=== PATIENT | female | born 1985 | race Caucasian/White ===

== ENCOUNTER 2019-03-05 11:33 | Emergency (ER) | payer OTHER ==
[2019-03-05] MEDS ORDERED: NORMAL SALINE 1000 ML 1,000 ML IV ONE (11:58)
[2019-03-05] MEDS ORDERED: METOCLOPRAMIDE HCL INJ/PF 10 MG/2 ML SDV IV ONE (11:58)
[2019-03-05 12:59] LABS: ABSOLUTE EOSINOPHILS # (AUTO) 0.1 10^3/uL (0.0-0.6); ABSOLUTE LYMPHOCYTES (AUTO) 1.5 10^3/uL (0.5-4.7); ABSOLUTE MONOCYTES (AUTO) 0.5 10^3/uL (0.1-1.4); ABSOLUTE NEUT (AUTO) 6.8 10^3/uL (1.7-8.2); BASOPHILS % (AUTO) 0.3 % (0-2); EOSINOPHILS % (AUTO) 1.1 % (0-6); HEMATOCRIT 40.3 % (36.0-47.0); HEMOGLOBIN 13.7 g/dL (12.0-15.5); LYMPHOCYTES % (AUTO) 17.2 % (13-45); MEAN CORPUSCULAR HEMOGLOBIN 30.1 pg (27.0-33.4); MEAN CORPUSCULAR HGB CONC 34.1 g/dL (32.0-36.0); MEAN CORPUSCULAR VOLUME 89 fl (80-97); MONOCYTES % (AUTO) 5.4 % (3-13); PLATELET COUNT 205 10^3/uL (150-450); RED BLOOD COUNT 4.55 10^6/uL (3.72-5.28); RED CELL DISTRIBUTION WIDTH 12.5 % (11.5-14.0); TOTAL CELLS COUNTED % (AUTO) 100 %; WHITE BLOOD COUNT 8.9 10^3/uL (4.0-10.5)
[2019-03-05 13:09] LABS: APPEARANCE,URINE SLIGHTLY-CLOUDY; BILIRUBIN,URINE NEGATIVE (NEGATIVE); GLUCOSE, URINE NEGATIVE (NEGATIVE); KETONES,URINE NEGATIVE (NEGATIVE); LEUKOCYTE ESTERASE,URINE MODERATE (NEGATIVE); NITRITE,URINE NEGATIVE (NEGATIVE); PROTEIN,URINE NEGATIVE (NEGATIVE); URINE SPECIFIC GRAVITY 1.025; UROBILINOGEN,URINE NEGATIVE mg/dL (<2.0)
[2019-03-05 13:12] LABS: COLOR,URINE YELLOW
[2019-03-05 15:03] LABS: ALBUMIN 4.4 g/dL (3.5-5.0); ALKALINE PHOSPHATASE 51 U/L (38-126); ANION GAP 10 (5-19); ASPARTATE AMINO TRANSFERASE 20 U/L (14-36); BILIRUBIN,DIRECT 0.3 mg/dL (0.0-0.4); BILIRUBIN,TOTAL 0.5 mg/dL (0.2-1.3); BLOOD UREA NITROGEN 8 mg/dL (7-20); CALCIUM 9.5 mg/dL (8.4-10.2); CARBON DIOXIDE 23 mmol/L (22-30); CHLORIDE 103 mmol/L (98-107); GLUCOSE 83 mg/dL (75-110); TOTAL PROTEIN 7.2 g/dL (6.3-8.2)
[2019-03-05] MEDS ORDERED: CALCIUM GLUCONATE 1000 MG/10 ML INJ IV ONE (15:52)
[2019-03-05] MEDS ORDERED: CEPHALEXIN 500 MG CAPSULE PO ONE (16:09)
[2019-03-05] MEDS ORDERED: ONDANSETRON ODT 4 MG TAB (6 TAB/ER DISP) PO PRN (16:09)
--- NOTE | 2019-03-05 16:12 | ER Document Report ---
ED General - General Chief Complaint: Nausea/Vomiting/Diarrhea Stated Complaint: NAUSEA Time Seen by Provider: 03/05/19 11:55 Primary Care Provider: JEREMY SOLOMON MD [Primary Care Provider] - Follow up as needed Notes: 33-year-old G7, P2 5-week female presents to the emergency department for intractable nausea and intermittent vomiting x1 week. She said it got acutely worse overnight and she sought treatment in the emergency department. She received Zofran in triage and states she is feeling better upon meeting her. She has not had intractable vomiting or any diarrhea. She denies any rapid heart rate or any recent illness. She denies fevers or chills, denies abdominal pain, denies abnormal vaginal discharge, did complain of some mild spotting on Friday but states that she is on progesterone and this is an expected side effect. She is being followed by [facility]. No other complaints TRAVEL OUTSIDE OF THE [place] IN LAST 30 DAYS: No - Related Data Allergies/Adverse Reactions: No Known Allergies Allergy (Verified 03/05/19 11:46) Past Medical History - Social History Smoking Status: Never Smoker Family History: None Patient has suicidal ideation: No Patient has homicidal ideation: No Past Surgical History: Reports: Hx Orthopedic Surgery - back, foot, hand Review of Systems - Review of Systems Constitutional: See HPI EENT: No symptoms reported Cardiovascular: See HPI Respiratory: See HPI Gastrointestinal: See HPI Genitourinary: See HPI Female Genitourinary: See HPI Musculoskeletal: No symptoms reported Skin: No symptoms reported Hematologic/Lymphatic: No symptoms reported Neurological/Psychological: No symptoms reported Physical Exam - Vital signs Vitals: Temp Pulse Resp BP Pulse Ox 98.1 F 70 18 124/78 99 03/05/19 11:48 03/05/19 11:48 03/05/19 11:48 03/05/19 11:48 03/05/19 11:48 - Notes Notes: PHYSICAL EXAMINATION: Reviewed vital signs and charting by RN GENERAL: Alert, interacts well. No acute distress. HEAD: Normocephalic, atraumatic. EYES: Pupils equal and round. Extraocular movements intact. ENT: Oral mucosa moist, tongue midline. NECK: Full range of motion. Trachea midline. LUNGS: Clear to auscultation bilaterally, no wheezes, rales, or rhonchi. No re spiratory distress. HEART: Regular rate and rhythm. No murmur ABDOMEN: soft, non-tender. No distention. Bowel sounds present EXTREMITIES: Moves all 4 extremities spontaneously. No edema, No cyanosis. PSYCH: Normal affect, normal mood. SKIN: Warm, dry, normal turgor. No rashes or lesions noted. Course - Re-evaluation Re-evalutation: 03/05/19 16:12 Overall well-appearing. Patient with history of nausea and vomiting in pregnanc y. He is a high risk patient is she is a G7, P2. She does have symptoms of urinary tract infection so I am treating her and will send the urine for culture. She will receive Keflex 500 mg p.o. here and I will give her a Zofran dispense pack. I have advised her on the Unisom/vitamin B6 combination as well. Patient's lab work all within normal limits and there is no evidence of dehydration in urine or in lab work, no electrolyte derangements. At this time patient understands plan, has been given strict return precautions, and is stable for discharge. - Vital Signs Vital signs: Temp Pulse Resp BP Pulse Ox 98.1 F 70 18 124/78 99 03/05/19 11:48 03/05/19 11:48 03/05/19 11:48 03/05/19 11:48 03/05/19 11:48 - Laboratory Result Diagrams: 03/05/19 12:29 03/05/19 13:11 Laboratory results interpreted by me: 03/05/19 03/05/19 12:29 13:11 Sodium 136.3 L Creatinine 0.45 L Beta HCG, Quant 71390.00 H Ur Leukocyte Esterase MODERATE H Urine Ascorbic Acid 40 H Discharge - Discharge Clinical Impression: Nausea and vomiting during prior to 22 weeks gestation Condition: Good Disposition: HOME, SELF-CARE Additional Instructions: You have been seen for nausea vomiting during . You should continue to drink plenty of water and consider taking a solution such as Pedialyte if your having difficulty eating food. Please return if you become unable to drink any fluids for more than 12 hours, urinate less than twice a day, pass out, or have any other symptoms that are concerning to you. For nausea and vomiting during I recommend: Start with 10-12.5 mg of pyridoxine (vitamin B6) three times a day for 2 days. If not fully effective, Increase to 12.5 mg of pyridoxine four times a day for 2 days. If not fully effective, Increase to 25 mg of pyridoxine three times a day for 2 days. If not fully effective, Continue 25 mg pyridoxine 3 times a day, and add 12.5 mg of doxylamine before bedtime each day for 2 days. If not fully effective, Continue 25 mg pyridoxine 3 times a day, and take 12.5 mg of doxylamine twice a day. If not fully effective, Continue 25 mg pyridoxine 3 times a day, and take 12.5 mg of doxylamine three times a day. If not fully effective, Continue 25 mg pyridoxine 3 times a day, and 12.5 mg of doxylamine 3 times a day, while adding Emetrol, one to two tablespoons (15-30 cc) taken once or twice a day as needed. (Emetrol is an ayhr-yqg-fjuhkfj mixture of sugar syrups and phosphoric acid [phosphorylated carbohydrate solution]) that acts by soothing the actual wall of the gastrointestinal tract). If not fully effective, Consult with your doctor. In the meantime, I am giving you a small amount of Zofran that you can take as needed for nausea. Referrals: JEREMY SOLOMON MD [Primary Care Provider] - Follow up as needed
[2019-03-05 16:27] VITALS: BP 116/69
== END 2019-03-05 16:27 | disposition home or self-care (01) ==
LOC: ER 11:33
DX: O21.9 Vomiting of pregnancy, unspecified (principal); R19.7 Diarrhea, unspecified; Z3A.01 Less than 8 weeks gestation of pregnancy
CPT/HCPCS: 99284; 96361; 96374; 36415; 87086; 84702; 85025; 80053; 81001; J2765; J7030

== ENCOUNTER 2019-05-11 15:57 | Emergency (ER) | payer OTHER ==
--- NOTE | 2019-05-11 16:12 | ER Document Report ---
ED Medical Screen (RME) - General Chief Complaint: Palpitations Stated Complaint: HEART FEELS LIKE ITS "RACING" Time Seen by Provider: 05/11/19 16:07 Primary Care Provider: JEREMY SOLOMON MD [Primary Care Provider] - Follow up as needed Mode of Arrival: Ambulatory Information source: Patient Notes: 33-year-old female presents to ED for complaint of rating heartbeat. She states it goes between 120 and 140 all day. Her heart rate was 100 in the triage and her EKG shows 97. Patient states she has not had any chest pain just shortness of breath. She states she has never been diagnosed with SVT or anything like that in the past. History of scoliosis and Vaterl. She has had a history of lung issues with this. She states she is 16 weeks 7 para 2. States she does not smoke drink or do any drugs. She states that her scoliosis is such that the spine lays on 1 of her lungs she has 50% breathing capacity not . I have greeted and performed a rapid initial assessment of this patient. A comprehensive ED assessment and evaluation of the patient, analysis of test results and completion of medical decision making process will be conducted by an additional ED providers. TRAVEL OUTSIDE OF THE [place] IN LAST 30 DAYS: No - Related Data Allergies/Adverse Reactions: No Known Allergies Allergy (Verified 03/05/19 11:46) Past Medical History Past Surgical History: Reports: Hx Orthopedic Surgery - back, foot, hand Doctor's Discharge - Discharge Referrals: JEREMY SOLOMON MD [Primary Care Provider] - Follow up as needed
[2019-05-11 16:40] LABS: ABSOLUTE EOSINOPHILS # (AUTO) 0.1 10^3/uL (0.0-0.6); ABSOLUTE LYMPHOCYTES (AUTO) 1.3 10^3/uL (0.5-4.7); ABSOLUTE MONOCYTES (AUTO) 0.5 10^3/uL (0.1-1.4); ABSOLUTE NEUT (AUTO) 5.8 10^3/uL (1.7-8.2); BASOPHILS % (AUTO) 0.4 % (0-2); EOSINOPHILS % (AUTO) 1.1 % (0-6); HEMATOCRIT 34.8 % (36.0-47.0); HEMOGLOBIN 12.3 g/dL (12.0-15.5); LYMPHOCYTES % (AUTO) 17.4 % (13-45); MEAN CORPUSCULAR HEMOGLOBIN 31.2 pg (27.0-33.4); MEAN CORPUSCULAR HGB CONC 35.3 g/dL (32.0-36.0); MEAN CORPUSCULAR VOLUME 89 fl (80-97); PLATELET COUNT 213 10^3/uL (150-450); RED BLOOD COUNT 3.93 10^6/uL (3.72-5.28); RED CELL DISTRIBUTION WIDTH 12.5 % (11.5-14.0); SEGMENTED NEUTROPHILS % (AUTO) 75.1 % (42-78); TOTAL CELLS COUNTED % (AUTO) 100 %; WHITE BLOOD COUNT 7.8 10^3/uL (4.0-10.5)
[2019-05-11 17:02] LABS: ALBUMIN 4.1 g/dL (3.5-5.0); ALKALINE PHOSPHATASE 46 U/L (38-126); ANION GAP 9 (5-19); ASPARTATE AMINO TRANSFERASE 22 U/L (14-36); BILIRUBIN,DIRECT 0.1 mg/dL (0.0-0.4); BILIRUBIN,TOTAL 0.3 mg/dL (0.2-1.3); BLOOD UREA NITROGEN 7 mg/dL (7-20); CALCIUM 9.7 mg/dL (8.4-10.2); CARBON DIOXIDE 26 mmol/L (22-30); CHLORIDE 102 mmol/L (98-107); GLUCOSE 86 mg/dL (75-110); POTASSIUM 4.1 mmol/L (3.6-5.0)
--- NOTE | 2019-05-11 17:17 | RADIOLOGY REPORT (SQ) ---
EXAM DESCRIPTION: CHEST 2 VIEWS COMPLETED DATE/TIME: 05/11/2019 4:45 pm REASON FOR STUDY: short of breath 16 wks please shield COMPARISON: None. EXAM PARAMETERS: NUMBER OF VIEWS: two views TECHNIQUE: Digital Frontal and Lateral radiographic views of the chest acquired. RADIATION DOSE: NA LIMITATIONS: none FINDINGS: LUNGS AND PLEURA: No opacities, masses or pneumothorax. No pleural effusion. MEDIASTINUM AND HILAR STRUCTURES: Normal size given patient scoliosis. HEART AND VASCULAR STRUCTURES: Heart normal size. No evidence for failure. BONES: Severe serpiginous thoracolumbar curvature. No acute findings. HARDWARE: None in the chest. OTHER: No other significant finding. IMPRESSION: No evidence of focal airspace disease or other acute intrathoracic process. Extensive serpiginous thoracolumbar curvature. TECHNICAL DOCUMENTATION: JOB ID: [id number] [employer]- All Rights Reserved Reading location - IP/workstation name: [email or web address]
--- NOTE | 2019-05-11 18:20 | ER Document Report ---
ED General - General Chief Complaint: Palpitations Stated Complaint: HEART FEELS LIKE ITS "RACING" Time Seen by Provider: 05/11/19 16:07 Primary Care Provider: JEREMY SOLOMON MD [Primary Care Provider] - Follow up in 3-5 days Mode of Arrival: Ambulatory Notes: 33-year-old female presents for tachycardia and dyspnea that started this morning upon awakening. Is currently 16 weeks . She states that her Apple Watch has been showing a heart rate between 110-[address] ates she also has associated chest tightness and fatigue. Patient states that 1 of her lungs is only working at 50% due to scoliosis. Denies any related complaints including vaginal bleeding, vaginal discharge, pelvic pain, abdominal pain. Denies cough, fever, chills. Patient denies any recent long distance travel, personal history of cancer, any recent hospitalizations, any recent surgeries. TRAVEL OUTSIDE OF THE [place] IN LAST 30 DAYS: No - Related Data Allergies/Adverse Reactions: No Known Allergies Allergy (Verified 03/05/19 11:46) Home Medications: progresterone. aspirin. gabapentin. probiotic. levothyroxine. folic acid and prenatals Past Medical History - General Information source: Patient - Social History Smoking Status: Never Smoker Frequency of alcohol use: None Drug Abuse: None Family History: None Patient has suicidal ideation: No Patient has homicidal ideation: No Past Surgical History: Reports: Hx Orthopedic Surgery - back, foot, hand Review of Systems - Review of Systems Notes: Constitutional: Negative for fever. HENT: Negative for sore throat. Eyes: Negative for visual changes. Cardiovascular: Positive for tachycardia and chest tightness. Respiratory: Positive for shortness of breath. Gastrointestinal: Negative for abdominal pain, vomiting or diarrhea. Genitourinary: Negative for dysuria. Musculoskeletal: Negative for back pain. Skin: Negative for rash. Neurological: Negative for headaches, weakness or numbness. 10 point ROS negative except as marked above and in HPI. Physical Exam - Vital signs Vitals: Temp Pulse Resp BP Pulse Ox 97.7 F 100 17 144/86 H 96 05/11/19 16:06 05/11/19 16:06 05/11/19 16:06 05/11/19 16:06 05/11/19 16:06 - Notes Notes: GENERAL: Well-appearing, well-nourished and in no acute distress. HEAD: Atraumatic, normocephalic. EYES: Extraocular movements intact, sclera anicteric, conjunctiva are normal. NECK: Normal range of motion, supple without lymphadenopathy or JVD. LUNGS: Breath sounds clear to auscultation bilaterally and equal. No wheezes rales or rhonchi. No tripoding, no accessory muscle use, no cyanosis. HEART: Regular rate and rhythm without murmurs, rubs or gallops. ABDOMEN: Soft, nontender, normoactive bowel sounds. No guarding, no rebound. No masses appreciated. EXTREMITIES: Normal range of motion, no pitting or edema. No clubbing or cya nosis. NEUROLOGICAL: Cranial nerves II through XII grossly intact. Normal speech, normal gait. PSYCH: Normal mood, normal affect. SKIN: Warm, Dry, normal turgor, no rashes or lesions noted. Course - Re-evaluation Re-evalutation: 05/11/19 Presentation of chest tightness, dyspnea, and tachycardia in an otherwise well appearing patient. No hypoxia, no tachycardia while in ER. Low clinical suspicion for ACS given clinical history, exam, EKG without ST elevations or depressions, and negative initial troponin. HEART score less than or equal to 3. CXR without evidence of pneumothorax or pneumonia. No widened mediastinum. Aortic dissection also seems unlikely given history, symmetric pulses, CXR, and vitals. HEART Score: 0 Concern for PE given tachycardia, dyspnea, and . D-dimer negative. Tachycardia and dyspnea most likely related to [id number] uterus. Pt given strict return precautions and close follow up with PCP in 2-3 days. All results reviewed with pt. All questions/concerns addressed prior to discharge. - Vital Signs Vital signs: Temp Pulse Resp BP Pulse Ox 98.1 F 100 18 113/56 L 97 05/11/19 19:17 05/11/19 16:06 05/11/19 19:21 05/11/19 19:21 05/11/19 19:21 - Laboratory Result Diagrams: 05/11/19 16:28 05/11/19 16:28 Laboratory results interpreted by me: 05/11/19 05/11/19 16:28 16:28 Hct 34.8 L Sodium 136.7 L Discharge - Discharge Clinical Impression: Palpitations Dyspnea Qualifiers: Dyspnea type: unspecified Qualified Code(s): R06.00 - Dyspnea, unspecified Condition: Stable Disposition: HOME, SELF-CARE Instructions: Palpitations (Irregular or Rapid Heartrate) ([facility]) Additional Instructions: Your work-up today was reassuring. Please follow-up with your PCP in 2 to 3 days. Return to ER if you start having worsening tachycardia, shortness of breath, chest pain, fevers or any other symptoms concerning to you. Referrals: JEREMY SOLOMON MD [Primary Care Provider] - Follow up in 3-5 days
[2019-05-11 19:36] VITALS: BP 113/56
--- NOTE | 2019-05-12 23:51 | EKG REPORT ---
SEVERITY:- NORMAL ECG - SINUS RHYTHM : Confirmed by: Bright Rm 12-May-2019 23:50:50
== END 2019-05-11 19:50 | disposition home or self-care (01) ==
LOC: ER 15:57
DX: O26.892 Other specified pregnancy related conditions, second trimester (principal); R00.2 Palpitations; R06.00 Dyspnea, unspecified; R07.9 Chest pain, unspecified; R53.83 Other fatigue; Z3A.16 16 weeks gestation of pregnancy
CPT/HCPCS: 36415; 71046; 80053; 84443; 84484; 85025; 85379; 93005; 93010; 99285

== ENCOUNTER 2019-07-20 15:28 | Emergency (ER) | payer OTHER ==
--- NOTE | 2019-07-20 15:53 | ER Document Report ---
ED Medical Screen (RME) - General Chief Complaint: Palpitations Stated Complaint: FAST HEART BEAT,HEAD PRESSURE Primary Care Provider: JEREMY SOLOMON MD [Primary Care Provider] - Follow up as needed TRAVEL OUTSIDE OF THE [place] IN LAST 30 DAYS: No - HPI Notes: 07/20/19 15:38 Patient is a 34-year-old female approximately 26 weeks who presents complaining of palpitations Patient states that she also has scoliosis affecting 1 of her lungs. She does wear O2 at night time with this preg per pt. Symptoms have since improved but she does feel "winded." She is able to eat and drink without difficulty. She is urinating normally and having normal bowel movements. No fever. No vaginal bleeding/odor/discharge or any pelvic/low back pain. I have treated and performed a rapid initial assessment of this patient. A comprehensive ED assessment and evaluation of the patient, analysis of test results and completion of medical decision making process will be conducted by additional ED providers. PHYSICAL EXAMINATION: GENERAL: Well-appearing, well-nourished and in no acute distress. A&Ox4. Answers questions appropriately. Heart: RRR Lungs: CTAB - Related Data Allergies/Adverse Reactions: No Known Allergies Allergy (Verified 07/20/19 15:48) Past Medical History Past Surgical History: Reports: Hx Orthopedic Surgery - back, foot, hand Physical Exam - Vital signs Vitals: Temp Pulse Resp BP Pulse Ox 98.1 F 127 H 18 154/80 H 95 07/20/19 15:36 07/20/19 15:36 07/20/19 15:36 07/20/19 15:36 07/20/19 15:36 Course - Vital Signs Vital signs: Temp Pulse Resp BP Pulse Ox 98.1 F 127 H 18 154/80 H 95 07/20/19 15:36 07/20/19 15:36 07/20/19 15:36 07/20/19 15:36 07/20/19 15:36 Doctor's Discharge - Discharge Referrals: JEREMY SOLOMON MD [Primary Care Provider] - Follow up as needed
[2019-07-20] MEDS ORDERED: NORMAL SALINE 1000 ML 1,000 ML IV ONE (15:55)
--- NOTE | 2019-07-20 16:56 | RADIOLOGY REPORT (SQ) ---
EXAM DESCRIPTION: CHEST 2 VIEWS COMPLETED DATE/TIME: 07/20/2019 4:18 pm REASON FOR STUDY: palpitations COMPARISON: 05/11/2019 EXAM PARAMETERS: NUMBER OF VIEWS: two views TECHNIQUE: Digital Frontal and Lateral radiographic views of the chest acquired. RADIATION DOSE: NA LIMITATIONS: none FINDINGS: LUNGS AND PLEURA: No opacities, masses or pneumothorax. No pleural effusion. MEDIASTINUM AND HILAR STRUCTURES: No masses or contour abnormalities. HEART AND VASCULAR STRUCTURES: Heart normal size. No evidence for failure. BONES: Marked S shaped scoliosis thoracic spine, stable finding. HARDWARE: None in the chest. OTHER: No other significant finding. IMPRESSION: 1. No significant interval changes since the prior examination dated 05/11/2019. No acu te findings. TECHNICAL DOCUMENTATION: JOB ID: [id number] [employer]- All Rights Reserved Reading location - IP/workstation name: [email or web address]
[2019-07-20 17:10] LABS: ABSOLUTE EOSINOPHILS # (AUTO) 0.1 10^3/uL (0.0-0.6); ABSOLUTE MONOCYTES (AUTO) 0.4 10^3/uL (0.1-1.4); ABSOLUTE NEUT (AUTO) 4.9 10^3/uL (1.7-8.2); APPEARANCE,URINE CLEAR; BASOPHILS % (AUTO) 0.3 % (0-2); BILIRUBIN,URINE NEGATIVE (NEGATIVE); COLOR,URINE YELLOW; EOSINOPHILS % (AUTO) 1.9 % (0-6); GLUCOSE, URINE NEGATIVE (NEGATIVE); HEMOGLOBIN 11.2 g/dL (12.0-15.5); KETONES,URINE NEGATIVE (NEGATIVE); LYMPHOCYTES % (AUTO) 15.9 % (13-45); MEAN CORPUSCULAR HEMOGLOBIN 30.1 pg (27.0-33.4); MEAN CORPUSCULAR HGB CONC 33.9 g/dL (32.0-36.0); MEAN CORPUSCULAR VOLUME 89 fl (80-97); MONOCYTES % (AUTO) 6.4 % (3-13); PLATELET COUNT 240 10^3/uL (150-450); PROTEIN,URINE NEGATIVE (NEGATIVE); RED BLOOD COUNT 3.72 10^6/uL (3.72-5.28); RED CELL DISTRIBUTION WIDTH 13.2 % (11.5-14.0); SEGMENTED NEUTROPHILS % (AUTO) 75.5 % (42-78); TOTAL CELLS COUNTED % (AUTO) 100 %; URINE SPECIFIC GRAVITY 1.008; UROBILINOGEN,URINE NEGATIVE mg/dL (<2.0); WHITE BLOOD COUNT 6.5 10^3/uL (4.0-10.5)
[2019-07-20 17:45] LABS: ALBUMIN 3.8 g/dL (3.5-5.0); ALKALINE PHOSPHATASE 67 U/L (38-126); ANION GAP 6 (5-19); ASPARTATE AMINO TRANSFERASE 22 U/L (14-36); BILIRUBIN,DIRECT 0.2 mg/dL (0.0-0.4); BILIRUBIN,TOTAL 0.3 mg/dL (0.2-1.3); BLOOD UREA NITROGEN 5 mg/dL (7-20); CALCIUM 9.5 mg/dL (8.4-10.2); CARBON DIOXIDE 31 mmol/L (22-30); CHLORIDE 100 mmol/L (98-107); GLUCOSE 100 mg/dL (75-110); POTASSIUM 4.1 mmol/L (3.6-5.0); TOTAL PROTEIN 7.1 g/dL (6.3-8.2)
--- NOTE | 2019-07-20 21:04 | ER Document Report ---
ED General - General Chief Complaint: Palpitations Stated Complaint: FAST HEART BEAT,HEAD PRESSURE Time Seen by Provider: 07/20/19 20:06 Primary Care Provider: JEREMY SOLOMON MD [Primary Care Provider] - Follow up as needed Mode of Arrival: Ambulatory Information source: Patient Notes: 34-year-old female presented to ED for complaint of palpitations headache at 26 weeks . She states she does have a history of scoliosis and has had a similar episode in the past. She did get sent to pulmonology but they did not send her to cardiology. She states she is actually feeling much better now heart rate is now in the 95-96 range. She states earlier she was very winded with palpitations. She states she has had this in the past during this . Patient is a well-appearing well-nourished 34-year-old female who is . TRAVEL OUTSIDE OF THE [place] IN LAST 30 DAYS: No - HPI Onset: This afternoon Onset/Duration: Better Quality of pain: No pain Severity: None Pain Level: Denies Associated symptoms: Other - She was having palpitations shortness of breath t hese are resolved. Exacerbated by: Movement Relieved by: Denies Similar symptoms previously: Yes Recently seen / treated by doctor: Yes - Related Data Allergies/Adverse Reactions: No Known Allergies Allergy (Verified 07/20/19 17:57) Home Medications: [facility] Past Medical History - Social History Smoking Status: Never Smoker Chew tobacco use (# tins/day): No Frequency of alcohol use: None Drug Abuse: None Family History: None Patient has suicidal ideation: No Patient has homicidal ideation: No Past Surgical History: Reports: Hx Section - X2, Hx Orthopedic Surgery - back,L foot RECON, L hand RECONS, SHUNT- SPINAL CORD Review of Systems - Review of Systems Constitutional: No symptoms reported EENT: No symptoms reported Cardiovascular: Palpitations Respiratory: No symptoms reported Gastrointestinal: No symptoms reported Genitourinary: No symptoms reported Female Genitourinary: No symptoms reported Musculoskeletal: No symptoms reported Skin: No symptoms reported Hematologic/Lymphatic: No symptoms reported Neurological/Psychological: No symptoms reported -: Yes All other systems reviewed and negative Physical Exam - Vital signs Vitals: Temp Pulse Resp BP Pulse Ox 98.1 F 127 H 18 154/80 H 95 07/20/19 15:36 07/20/19 15:36 07/20/19 15:36 07/20/19 15:36 07/20/19 15:36 Interpretation: Normal - General General appearance: Appears well, Alert - HEENT Head: Normocephalic, Atraumatic Eyes: Normal Pupils: PERRL - Respiratory Respiratory status: No respiratory distress Chest status: Nontender Breath sounds: Normal Chest palpation: Normal - Cardiovascular Rhythm: Regular Heart sounds: Normal auscultation Murmur: No - Abdominal Inspection: Gravid female Distension: No distension Bowel sounds: Normal Tenderness: Nontender Organomegaly: No organomegaly - Back Back: Normal, Nontender - Extremities General upper extremity: Normal inspection, Nontender, Normal color, Normal ROM, Normal temperature General lower extremity: Normal inspection, Nontender, Normal color, Normal ROM, Normal temperature, Normal weight bearing. No: Kain's sign - Neurological Neuro grossly intact: Yes Cognition: Normal Orientation: AAOx4 Tanya Coma Scale Eye Opening: Spontaneous Tanya Coma Scale Verbal: Oriented Tanya Coma Scale Motor: Obeys Commands Crystal Coma Scale Total: 15 Speech: Normal Motor strength normal: LUE, RUE, LLE, RLE Sensory: Normal - Psychological Associated symptoms: Normal affect, Normal mood - Skin Skin Temperature: Warm Skin Moisture: Dry Skin Color: Normal Course - Re-evaluation Re-evalutation: 07/20/19 22:16 Discussed labs and ultrasound with patient. Patient's heart rate is down to 87- 100. She does have a heart score of 0. She is not having any signs or symptoms of a pulmonary emboli. She is not having any chest pain. She states she feels much better and is ready to go home. She states she has a follow-up appointment with her [facility] high risk med on . She has verbalized she will keep this appointment. Patient was discharged home. I did consult Dr. Correa who agreed with this discharge.. - Vital Signs Vital signs: Temp Pulse Resp BP Pulse Ox 98.1 F 127 H 22 H 127/68 H 100 07/20/19 15:36 07/20/19 15:36 07/20/19 22:04 07/20/19 22:04 07/20/19 22:04 - Laboratory Result Diagrams: 07/20/19 16:50 07/20/19 16:50 Laboratory results interpreted by me: 07/20/19 07/20/19 07/20/19 16:50 16:50 16:50 Hgb 11.2 L Hct 33.0 L Carbon Dioxide 31 H BUN 5 L Creatinine 0.39 L Leukocyte Esterase Rfl MODERATE H - Diagnostic Test Radiology reviewed: Image reviewed, Reports reviewed Discharge - Discharge Clinical Impression: Palpitation during Disposition: HOME, SELF-CARE Additional Instructions: Palpitations (Irregular/Rapid Heartrate) Irregular or rapid heartbeat is called "palpitation." To diagnose the cause of palpitation, we have to "catch it in the act" with an EKG. Sinus Tachycardia: This is a rapid (but NORMAL) rhythm that can be due to fever, pain, anxiety, lack of sleep, over-exertion, or drugs. Cold medications, caffeine, and diet pills are particularly likely to cause tachycardia. Usually, all that's required is rest, reassurance, and avoiding caffeine, alcohol, nicotine, and unnecessary medicines. Paroxysmal Atrial Tachycardia (PAT): This abnormally rapid heartbeat is caused by a "short circuit" in the electrical system of the heart. It is not dangerous, unless other heart disease is present. These attacks of PAT may occur occasionally for years. Medication is available for treatment. Paroxysmal Atrial Fibrillation or Atrial Flutter: This is irregular electrical activity in the upper heart chamber. These abnormal rhythms often oc cur with valve disease or in hearts damaged by hardening of the arteries. These rhythms usually require further testing, for example a cardiac echo. Premature Beats: Extra beats occur more commonly after caffeine, nicotine, alcohol, cold pills, diet pills. Emotional stress or fatigue also provoke them. Extra beats are only dangerous when heart disease is present. They usually need no treatment. If they're frequent, or if evidence of heart disease develops, medication can be given to suppress them. If we were unable to "catch" the palpitations on EKG, you should try to get an EKG immediately if the symptoms begin again. Contact the physician at once if you develop persistent lightheadedness, shortness of breath, chest pain, or swelling of the ankles. Stated you did have palpitations with shortness of breath earlier today. Your heart rate is down to 87-100. Your labs are negative. Your chest x-ray is negative. I have discussed all of the labs and x-ray with you. I have given you a copy of the labs and x-rays to take with you to your [facility] appointment on . You have felt movement while in the emergency room. Referrals: JEREMY SOLOMON MD [Primary Care Provider] - Follow up as needed
--- NOTE | 2019-07-20 21:27 | EKG REPORT ---
SEVERITY:- OTHERWISE NORMAL ECG - SINUS TACHYCARDIA : Confirmed by: Joy Brown MD 20-Jul-2019 21:26:26
[2019-07-20 22:42] VITALS: BP 127/68
== END 2019-07-20 22:43 | disposition home or self-care (01) ==
LOC: ER 15:28
DX: O26.892 Other specified pregnancy related conditions, second trimester (principal); R00.2 Palpitations; R51 Headache; Z3A.26 26 weeks gestation of pregnancy
CPT/HCPCS: 93005; 99285; 96360; 36415; 87086; 83735; 84443; 85025; 80053; 81001; 84484; 71046; 93010; J7030

== ENCOUNTER 2019-08-30 09:09 | Outpatient (CLI) | payer OTHER ==
[2019-08-30] MEDS ORDERED: RINGERS SOLUTION,LACTATED 1,000 ML IV ONE (10:29)
[2019-08-30 10:35] LABS: EPITHELIALS (WET MOUNT) 3+ EPITHELIALS SEEN; RBCS (WET MOUNT) 4+ RBCS SEEN; T.VAGINALIS (WET MOUNT) NO TRICHOMONAS SEEN; WBCS (WET MOUNT) NO WBCS SEEN; YEAST (WET MOUNT) NO YEAST SEEN
[2019-08-30 10:43] LABS: APPEARANCE,URINE SLIGHTLY-CLOUDY; BILIRUBIN,URINE NEGATIVE (NEGATIVE); COLOR,URINE AMBER; GLUCOSE, URINE NEGATIVE (NEGATIVE); KETONES,URINE 80 mg/dL (NEGATIVE); LEUKOCYTE ESTERASE,URINE NEGATIVE (NEGATIVE); NITRITE,URINE NEGATIVE (NEGATIVE); PROTEIN,URINE 100 mg/dL (NEGATIVE); URINE SPECIFIC GRAVITY 1.023
[2019-08-30 11:02] LABS: URINE AMPHETAMINES SCREEN NEGATIVE; URINE BARBITURATES SCREEN NEGATIVE; URINE BENZODIAZEPINES SCREEN NEGATIVE; URINE COCAINE SCREEN NEGATIVE; URINE MARIJUANA (THC) SCREEN NEGATIVE; URINE METHADONE SCREEN NEGATIVE; URINE PHENCYCLIDINE SCREEN NEGATIVE
[2019-08-30] MEDS ORDERED: BETAMET ACET/BETAMET NA INJ 6 MG/1 ML IM SCH (11:15)
[2019-08-30] MEDS ORDERED: BETAMET ACET/BETAMET NA INJ 6 MG/1 ML ONE (11:17)
[2019-08-30 12:01] LABS: CHLAM PCR NOT DETECTED (NOT DETECT)
[2019-08-30] MEDS ORDERED: ONDANSETRON HCL INJ/PF 4 MG/2 ML SDV ONE (12:23)
[2019-08-30] MEDS ORDERED: ONDANSETRON HCL INJ/PF 4 MG/2 ML SDV IV ONE (12:27)
== END 2019-08-30 13:04 | disposition home or self-care (01) ==
LOC: LC 09:09
PROVIDERS: ATTEND Obstetrics & Gynecology
PROC: 4A1HXCZ Monitoring of Products of Conception, Cardiac Rate, External Approach (ICD-10-PCS; principal; 2019-08-30)
DX: O46.93 Antepartum hemorrhage, unspecified, third trimester (principal); O99.283 Endocrine, nutritional and metabolic diseases complicating pregnancy, third trimester; E86.0 Dehydration; Z3A.30 30 weeks gestation of pregnancy
CPT/HCPCS: 59899; 87210; 81001; 80307; 87491; 87591; 84112; J0702; J2405; 96372

== ENCOUNTER → 2019-08-31 | Outpatient (CLI) | payer OTHER ==
[~2019-08-31] MED LIST: BETAMET ACET/BETAMET NA INJ 6 MG/1 ML IM ONE; BETAMET ACET/BETAMET NA INJ 6 MG/1 ML ONE; HYDROXYZINE PAMOATE 50 MG CAPSULE ONE; HYDROXYZINE PAMOATE 50 MG CAPSULE PO PRN
[2019-08-31 12:14] LABS: APPEARANCE,URINE SLIGHTLY-CLOUDY; BILIRUBIN,URINE MODERATE (NEGATIVE); COLOR,URINE AMBER; GLUCOSE, URINE NEGATIVE (NEGATIVE); KETONES,URINE 80 mg/dL (NEGATIVE); LEUKOCYTE ESTERASE,URINE NEGATIVE (NEGATIVE); NITRITE,URINE NEGATIVE (NEGATIVE); PROTEIN,URINE 100 mg/dL (NEGATIVE); URINE SPECIFIC GRAVITY 1.027
[2019-08-31 12:27] LABS: URINE AMPHETAMINES SCREEN NEGATIVE; URINE BARBITURATES SCREEN NEGATIVE; URINE BENZODIAZEPINES SCREEN NEGATIVE; URINE COCAINE SCREEN NEGATIVE; URINE MARIJUANA (THC) SCREEN NEGATIVE; URINE METHADONE SCREEN NEGATIVE; URINE PHENCYCLIDINE SCREEN NEGATIVE
== END ==
LOC: LC 11:42
PROVIDERS: ATTEND Student in an Organized Health Care Education/Training Program
DX: Z34.93 Encounter for supervision of normal pregnancy, unspecified, third trimester (principal); Z3A.31 31 weeks gestation of pregnancy
CPT/HCPCS: 59899; 87086; 81001; 80307; J0702

== ENCOUNTER 2019-09-05 02:22 | Inpatient (IN) | payer OTHER ==
[2019-09-05] MEDS ORDERED: HYDROXYZINE PAMOATE 50 MG CAPSULE ONE (02:44)
[2019-09-05] MEDS ORDERED: HYDROXYZINE PAMOATE 50 MG CAPSULE PO ONE (02:44)
[2019-09-05 02:58] LABS: APPEARANCE,URINE CLEAR; BILIRUBIN,URINE NEGATIVE (NEGATIVE); COLOR,URINE YELLOW; GLUCOSE, URINE NEGATIVE (NEGATIVE); KETONES,URINE TRACE mg/dL (NEGATIVE); LEUKOCYTE ESTERASE,URINE SMALL (NEGATIVE); NITRITE,URINE NEGATIVE (NEGATIVE); PROTEIN,URINE NEGATIVE (NEGATIVE); URINE SPECIFIC GRAVITY 1.013; UROBILINOGEN,URINE NEGATIVE mg/dL (<2.0)
[2019-09-05] MEDS ORDERED: LIDOCAINE 2%/EPINEPHRINE INJ 20 ML VIAL ONE (03:00)
[2019-09-05] MEDS ORDERED: CITRIC ACID/SODIUM CITRATE ORAL SOLN 15 ML UDCUP ONE (03:00)
[2019-09-05] MEDS ORDERED: SODIUM BICARBONATE 8.4% INJ 50 MEQ/50 ML DISP.SYRIN ONE ×2 (03:00→03:02)
[2019-09-05] MEDS ORDERED: CEFAZOLIN INJ 1 GM VIAL ONE (03:04)
[2019-09-05] MEDS ORDERED: ONDANSETRON HCL INJ/PF 4 MG/2 ML SDV ONE (03:13)
[2019-09-05] MEDS ORDERED: FENTANYL CITRATE INJ/PF 100 MCG/2 ML AMPUL ONE ×2 (03:13→06:06)
[2019-09-05] MEDS ORDERED: ACETAMINOPHEN 1,000 MG/100 ML RTUPB IV ONE (03:13)
[2019-09-05] MEDS ORDERED: METHYLERGONOVINE MALEATE INJ/PF 0.2 MG/1 ML AMPULE ONE (03:13)
[2019-09-05] MEDS ORDERED: KETOROLAC TROMETHAMINE INJ/PF 30 MG/1 ML SDV ONE (03:13)
[2019-09-05] MEDS ORDERED: DEXAMETHASONE SOD PHOSPHATE INJ 4 MG/1 ML VIAL ONE (03:13)
[2019-09-05] MEDS ORDERED: PROPOFOL INJ 200 MG/20 ML VIAL IV ONE (03:13)
[2019-09-05] MEDS ORDERED: PHENYLEPHRINE HCL INJ/PF 10 MG/1 ML SDV ONE (03:14)
[2019-09-05] MEDS ORDERED: OXYTOCIN 10 UNIT/ML VIAL ONE (03:14)
[2019-09-05] MEDS ORDERED: EPHEDRINE SULFATE INJ 50 MG/1 ML AMPULE ONE (03:14)
--- NOTE | 2019-09-05 03:16 | Admission Physical ---
Datetime Report Generated by CPN: 09/05/2019 03:15 CURRENT ADMISSION Chief Complaint: Uterine Contractions; Other Chief Complaint Other: vaginal bleeding Indication for Induction: Not Applicable Indication for Induction- Other: pt well known to me with multiple comorbidities necessitating Gen Anes for repeat c/s. Recounseled pt regarding tubal and she does desire to proceed with tubal with this c/s. Admit Impression : , Intrauterine ; Active Labor; Intact Membranes; Repeat Section; Tubal Ligation Admit Plan: Admit to Unit; Initiate Section Protocol ALLERGIES Medication Allergies: No Medication Allergies: No Known Allergies (07/20/2019) Latex: No Latex Allergies OBSTETRICAL HISTORY EDC: 10/28/2019 00:00 : 7 Para: 2 Term: 0 : 2 SAB: 4 IAB: 0 Ectopic: 0 Livin Cesareans: 2 VBACs: 0 Multiple Births: 0 Gestational Diabetes: Yes Rh Sensitization: No Incompetent Cervix: No FRANCA: No Infertility: No ART Treatment: No Uterine Anomaly: Yes IUGR: No Hx Previous C/S: Yes Macrosomia: No Hx Loss/Stillborn: Yes PIH: No Hx : No Placenta Previa/Abruption: No Depression/PP Depression: No PTL/PROM: Yes Post Hemorrhage: No Current Procedures: Ultrasound Obstetrical History Comments: G1-10/09/12. 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 [id number] MEDICAL HISTORY Diabetes: No Diabetes Type: Gestational Diabetes Blood Transfusion: Yes Pulmonary Disease (Asthma, TB): Yes Breast Disease: No Hypertension: No Block Engraver Surgery: Yes Heart Disease: No Hosp/Surgery: Yes Autoimmune Disorder: No Anesthetic Complications: Yes Kidney Disease: No Abnormal Pap Smear: No Neuro/Epilepsy: No Psychiatric Disorders: Yes Other Medical Diseases: No Hepatitis/Liver Disease: No Significant Family History: No Varicosities/Phlebitis: No Trauma/Violence : Unknown Thyroid Dysfunction: Yes Medical History Comments: hashimotos, born with one kidney, anxiety, blood transfusion as a child, vaginaplasty as a child ( 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); lung constriction d/t spinal anomaly Pt can not have a spinal or epidural due to a shunt placed in lower spinal cord as a child INFECTIOUS HISTORY Gonorrhea: No Genital Herpes: No Chlamydia: No Tuberculosis: No Syphilis: No Hepatitis: No HIV/AIDS Exposure: No Rash or Viral Illness: No HPV: No PHYSICAL EXAM General: Normal HEENT: Normal Neurologic: Normal Thyroid: Normal Heart: Normal Lungs: Normal Breast: Normal Back: Normal Abdomen: Normal Genitourinary Exam: Normal Extremities: Normal DTRs: Normal Pelvic Type: Adequate Vital Signs: Reviewed VAGINAL EXAM Dilatation: 5 Effacement: 90 Station: 1 MEMBRANES Pooling: Negative Membranes: Intact FETUS A EGA: 32.3 Monitoring: External US FHR- Baseline: 150 Variability: Moderate 6-25bpm Accelerations: 15X15 Decelerations: None FHR Category: Category I Estimated Weight (gm): 2400 Presentation: Vertex Admit Comment: pt given Steroids earlier this week when she presented with contraction and vaginal spotting. PLANS FOR LABOR AND DELIVERY Other Pain Management Plans: GENERAL Feeding Preference: Breast Benefit of Breast Feed Discussed: Yes Circumcision: Yes INFORMED CONSENT Signature: with User ID: [email or web address]
[2019-09-05 03:17] LABS: URINE AMPHETAMINES SCREEN NEGATIVE; URINE BARBITURATES SCREEN NEGATIVE; URINE BENZODIAZEPINES SCREEN NEGATIVE; URINE COCAINE SCREEN NEGATIVE; URINE MARIJUANA (THC) SCREEN NEGATIVE; URINE METHADONE SCREEN NEGATIVE; URINE PHENCYCLIDINE SCREEN NEGATIVE
[2019-09-05] MEDS ORDERED: MORPHINE SULFATE 10 MG/ML INJ IV PRN ×2 (04:01→04:40)
[2019-09-05] MEDS ORDERED: DIPHENHYDRAMINE HCL 50 MG/ML VIAL IV PRN (04:01)
[2019-09-05] MEDS ORDERED: FENTANYL CITRATE INJ/PF 100 MCG/2 ML AMPUL IV PRN ×3 (04:01)
[2019-09-05] MEDS ORDERED: MEPERIDINE HCL/PF INJ 25 MG/1 ML DISP.SYRIN IV PRN (04:01)
[2019-09-05] MEDS ORDERED: PROMETHAZINE HCL INJ 25 MG/1 ML VIAL IV PRN ×3 (04:01→04:40)
[2019-09-05] MEDS ORDERED: OXYCODONE-ACETAMINOPHEN 5-325 MG TABLET PO PRN ×2 (04:01)
[2019-09-05] MEDS ORDERED: ONDANSETRON HCL INJ/PF 4 MG/2 ML SDV IV PRN (04:06)
[2019-09-05 04:12] LABS: ABSOLUTE EOSINOPHILS # (AUTO) 0.1 10^3/uL (0.0-0.6); ABSOLUTE LYMPHOCYTES (AUTO) 1.9 10^3/uL (0.5-4.7); ABSOLUTE MONOCYTES (AUTO) 0.4 10^3/uL (0.1-1.4); ABSOLUTE NEUT (AUTO) 4.4 10^3/uL (1.7-8.2); BASOPHILS % (AUTO) 0.6 % (0-2); EOSINOPHILS % (AUTO) 1.1 % (0-6); HEMATOCRIT 29.9 % (36.0-47.0); HEMOGLOBIN 10.5 g/dL (12.0-15.5); LYMPHOCYTES % (AUTO) 27.4 % (13-45); MEAN CORPUSCULAR HEMOGLOBIN 30.8 pg (27.0-33.4); MEAN CORPUSCULAR HGB CONC 35.3 g/dL (32.0-36.0); MEAN CORPUSCULAR VOLUME 87 fl (80-97); MONOCYTES % (AUTO) 6.5 % (3-13); PLATELET COUNT 233 10^3/uL (150-450); RED BLOOD COUNT 3.42 10^6/uL (3.72-5.28); RED CELL DISTRIBUTION WIDTH 14.5 % (11.5-14.0); SEGMENTED NEUTROPHILS % (AUTO) 64.4 % (42-78); TOTAL CELLS COUNTED % (AUTO) 100 %; WHITE BLOOD COUNT 6.8 10^3/uL (4.0-10.5)
[2019-09-05] MEDS ORDERED: OXYTOCIN/NORMAL SALINE 20 UNIT/1,000 ML RTUINJ IV PRN (04:40)
[2019-09-05] MEDS ORDERED: RINGERS SOLUTION,LACTATED 1,000 ML IV PRN (04:40)
[2019-09-05] MEDS ORDERED: ACETAMINOPHEN 325 MG TABLET PO PRN (04:40)
[2019-09-05] MEDS ORDERED: ACETAMINOPHEN 1,000 MG/100 ML RTUPB IV PRN (04:40)
[2019-09-05] MEDS ORDERED: DIPH/PERTUSS(ACELL)/TETANUS VAC/PF 0.5 ML SYR (>=10YO) IM PRN (04:40)
[2019-09-05] MEDS ORDERED: SIMETHICONE 80 MG TAB.CHEW PO PRN (04:40)
[2019-09-05] MEDS ORDERED: MEASLES,MUMPS&RUBELLA VACC/PF 0.5 ML VIAL SUBCUT PRN (04:40)
[2019-09-05] MEDS ORDERED: ALBUTEROL SULFATE HFA (90 MCG/PUFF) 8 GM MDI IH ONE (04:45)
[2019-09-05] MEDS ORDERED: KETAMINE HCL INJ 500 MG/10 ML VIAL ONE (04:52)
--- NOTE | 2019-09-05 04:52 | Operative Report ---
Operative Report DATE OF SURGERY: 09/05/19 PREOPERATIVE DIAGNOSIS: IUP @ 32 3/7 wks. active labor, previous c/section, mu ltiple skeletal and pelvic surgeries POSTOPERATIVE DIAGNOSIS: same OPERATION: repeat c/section with tubal ligation SURGEON: RAMIREZ LIU ANESTHESIA: GA TISSUE REMOVED OR ALTERED: right fallopian tube segment COMPLICATIONS: none ESTIMATED BLOOD LOSS: 700 cc INTRAOPERATIVE FINDINGS: Male cephalic presentation, consistent with a 32-week gestation, multiple dense adhesions, scarring of the bladder to the lower uterine segment, uterus showed evidence of surgically absent left adnexa with patient's history of didelphys uterine removal. PROCEDURE: The patient was taken to the operating room, prepared and draped in anormal sterile fashion in a supine position with a leftward tilt. A transverse skin incision was made with a scalpel and carried through tothe underlying layer of fascia with the same scalpel. The fascia was excised in the midline and extended laterally with Faiza. The fascia was then dissected from the rectus muscle sharply with Mayosuman and the rectus muscle was divided and the peritoneal cavity was entered sharply with the same Metzenbaum. With good visualization of the bladder and the uterus the bladder blade was inserted. The hysterotomy was nicked with a scalpel and extended laterally with surgeon finger fraction. The infant was then delivered atraumatically with difficulty as the infant was deep in the pelvis and the patient's unusual anatomy made delivery difficult . the nose and mouth were suctioned with a suction bulb, the cord was clamped and cut and handed off to awaiting pediatricians. Cord blood was collected. The placenta was removed manually. The uterus was exteriorized and cleared of clots and debris. The hysterotomy was closed in sections due to damage to the lower uterine segment during delivery of the head with 0 Monocryl in a running, locked fashion. A second layer of the same suture was used to imbricate to ensure hemostasis. Attention was then turned to the fallopian tubes where the right fallopian tube was grasped with a [place], the mesosalpinx was divided with a Bovie. a 3-1/2 cm segment of fallopian tube was tied off with 2 pieces of 2-0 chromic.this segment was ligated using Metzenbaums and the pedicles were made hemostatic with the Bovie. The left adnexa was carefully inspected and found to be surgically absent consistent with what the patient had reported in her history. I looked thoroughly to see if there was any evidence of ovary or fallopian tube anywhere on the left at left aspect of the uterus and there was it was none and indeed there is no fallopian tube and ovary on that side. The uterus was returned to the abdomen and peritoneal cavity was cleared of clots and debris. The pedicles were inspected and they were still hemostatic. The rectus muscle and peritoneum were repaired with mattress stitch of 2-0 Chromic. The fascia was closed with 0-Vicryl. The subcutaneous layer was closed with plain catgut and the skin was closed with 4-0 Vicryl. The patient tolerated the procedure well. Sponge, lap, and needle counts correct x2 and the patient was taken to recovery in stable condition.
[2019-09-05] MEDS ORDERED: ALBUTEROL SULFATE 0.083% NEB 2.5 MG/3 ML AMPUL NEB ONE (05:22)
[2019-09-05] MEDS ORDERED: MISOPROSTOL 0.2 MG TABLET ONE (05:30)
[2019-09-05] MEDS ORDERED: GLUCAGON,HUMAN RECOMB 1 MG INJ SUBCUT PRN (05:33)
[2019-09-05] MEDS ORDERED: DEXTROSE 50%-WATER 25 GM/50 ML DISP.SYRIN IV PRN ×2 (05:33)
[2019-09-05] MEDS ORDERED: DEXTROSE 40% GEL 15 GM TUBE PO PRN ×2 (05:33)
[2019-09-05] MEDS ORDERED: ALBUTEROL SULFATE 0.083% NEB 2.5 MG/3 ML AMPUL NEB PRN (05:33)
[2019-09-05] MEDS ORDERED: KETOROLAC TROMETHAMINE INJ/PF 30 MG/1 ML SDV IV SCH (06:00)
[2019-09-05] MEDS ORDERED: PROPOFOL 1,000 MG/100 ML INFUS..BTL IV ONE (06:06)
[2019-09-05] MEDS ORDERED: PROPOFOL 1,000 MG/100 ML INFUS..BTL IV PRN (06:46)
--- NOTE | 2019-09-05 06:50 | Delivery Summary ---
Del Sum A-C Datetime Report Generated by CPN: 09/05/2019 06:50 DELIVERY PERSONNEL DELIVERY PERSONNEL: [id number] Delivery Doctor:: Kristin Rodriges MD Anesthesiologist:: Milka Parkinson MD SOFTWARE ENGINEERING ASSOCIATE MANAGER:: Mary Alice Sánchez CRNA Parimutuel Clerk:: Eli Torres RN Neonatal Nurse Practitioner:: CELESTINE Hawkins Nursery Nurse:: Qi Coronado RN Materials Intern/TOWER FOREMAN: [facility] Materials Intern/TOWER FOREMAN: [facility] Additional Personnel: : Rahda Lopez RN MATERNAL INFORMATION Delivery Anesthesia: General Medications After Delivery: Pitocin Drip 20 Units/1000ml NSS; Cytotec 1000mcg Per Rectum/Vagina; Other-Please Comment Meds After Delivery Comment: pitocin 20 units x 2 Maternal Complications: Other Other Maternal Complications: Transfer to ICU post c/s d/t pulmonary complications. See full anesthesia record. Complication Details: premature labor at 32 weeks with history of csection x 2 LABOR SUMMARY EDC: 10/28/2019 00:00 No. Babies in Womb: 1 Attempted: No Labor Anesthesia: None LABOR INFORMATION Reason for Induction: Not Applicable Onset of Labor: 09/05/2019 01:30 Oxytocin: N/A Group B Beta Strep: unknown Antibiotics # of Doses: 1 Antibiotics Time of Last Dose: 312 Name of Antibiotic Given: Ancef 1 grams IV Steroids Given: Full Course; > 24 Hours before Delivery (Annotations: Data stored by N on behalf of user) Reason Steroids Not Administered: Not Applicable MEMBRANES Membranes Rupture Method: Artificial Rupture of Membranes: 09/05/2019 03:47 Length of Rupture (hr): 0.00 Amniotic Fluid Color: Clear Amniotic Fluid Amount: Small Amniotic Fluid Odor: Normal STAGES OF LABOR Stage 3 hr: 0 Stage 3 min: 1 Total Time in Labor hr: 2 Total Time in Labor min: 18 VAGINAL DELIVERY Laceration Extension #1: N/A Sponge Count Correct: N/A CSECTION DELIVERY Primary Indication: > 2 Previous C-Sections Secondary Indication: Other Other Secondary Indication: Previous uterine surgery CSection Urgency: Non-Scheduled CSection Incidence: Repeat Labor: Labor Elective: Nonelective CSection Incision: Lower Uterine Transverse BABY A INFORMATION Delivery Date/Time: 09/05/2019 03:47 Method of Delivery: Nurse Controlled Delivery: No Born in Route : No : N/A Forceps: N/A Vacuum Extraction: N/A Shoulder Dystocia : No PRESENTATION/POSITION BABY A Presentation: Cephalic Cephalic Presentation: Vertex Breech Presentation: N/A PLACENTA INFORMATION BABY A Placenta Delivery Time : 09/05/2019 03:48 Placenta Method of Delivery: Manual Removal Placenta Status: Delivered SCORES BABY A Heart Rate 1 min: >100 bpm Resp Effort 1 min: Absent Reflex Irritability 1 min: No Response Muscle Tone 1 min: Flaccid Color 1 min: Blue/Pale Resuscitation Effort 1 min: Tactile Stimulation; Oxygen; PPV/NCPAP; Endotracheal Intubation SCORE 1 MIN: 2 Heart Rate 5 min: >100 bpm Resp Effort 5 min: Slow, Irregular Reflex Irritability 5 min: Cough or Sneeze or Pulls Away Muscle Tone 5 min: Some Flexion of Extremities Color 5 min: Body Ray, Extremities Blue Resuscitation Effort 5 min: Tactile Stimulation; Oxygen; Endotracheal Intubation SCORE 5 MIN: 7 INFORMATION BABY A Gestational Age at Delivery: 32.3 Gestational Status: - <34 Weeks Outcome : Liveborn Infant Condition : Stable Infant Sex: Male IDENTIFICATION BABY A Verification Date/Time: 09/05/2019 04:00 ID Band Number: [id number] Mother's Name Verified: Yes RN Verifying Infant: rn geetha WEIGHT/LENGTH BABY A Infant Birthweight (gm): 1710 Weight (lb): 3 Infant Weight (oz): 12 Infant Length (in): 17.00 Infant Length (cm): 43.18 CORD INFORMATION BABY A No. Cord Vessels: 3 Nuchal Cord : N/A Cord Blood Taken: Yes-For Storage (Mom's Blood type +) Suction: Mouth; Nose ASSESSMENT BABY A Infant Complications: None Physical Findings at Delivery: Bruising Physical Findings- Other: bruising on face Skin to Skin: No Technology Teacher/ALS Called : Yes Care By: NICU Transferred To: NICU BABY B INFORMATION : N/A
[2019-09-05] MEDS ORDERED: FENTANYL CITRATE INJ/PF 100 MCG/2 ML AMPUL IV ONE ×2 (06:52→06:53)
[2019-09-05] MEDS: RINGERS SOLUTION,LACTATED 1,000 ML IV PRN ×2 (07:00→14:22)
[2019-09-05 07:05] LABS: ABSOLUTE EOSINOPHILS # (AUTO) 0.1 10^3/uL (0.0-0.6); ABSOLUTE MONOCYTES (AUTO) 0.3 10^3/uL (0.1-1.4); ABSOLUTE NEUT (AUTO) 12.6 10^3/uL (1.7-8.2); BASOPHILS % (AUTO) 0.3 % (0-2); EOSINOPHILS % (AUTO) 0.3 % (0-6); HEMATOCRIT 33.2 % (36.0-47.0); LYMPHOCYTES % (AUTO) 13.1 % (13-45); MEAN CORPUSCULAR HEMOGLOBIN 29.2 pg (27.0-33.4); MEAN CORPUSCULAR VOLUME 89 fl (80-97); MONOCYTES % (AUTO) 2.1 % (3-13); PLATELET COUNT 241 10^3/uL (150-450); RED BLOOD COUNT 3.75 10^6/uL (3.72-5.28); RED CELL DISTRIBUTION WIDTH 15.1 % (11.5-14.0); SEGMENTED NEUTROPHILS % (AUTO) 84.2 % (42-78); TOTAL CELLS COUNTED % (AUTO) 100 %; WHITE BLOOD COUNT 14.9 10^3/uL (4.0-10.5)
[2019-09-05 07:13] LABS: INTERNATIONAL RATION (INR) 0.96; PROTHROMBIN TIME 12.8 SEC (11.4-15.4)
[2019-09-05 07:14] LABS: PARTIAL THROMBOPLASTIN TIME 24.7 SEC (23.5-35.8)
--- NOTE | 2019-09-05 07:14 | RADIOLOGY REPORT (SQ) ---
EXAM DESCRIPTION: XR CHEST 1 VIEW COMPLETED DATE/TME: 09/05/2019 05:41 CLINICAL HISTORY: 34 years Female, intubation COMPARISON: 05/11/19 NUMBER OF VIEWS/TECHNIQUE: 1/AP FINDINGS: Moderate mixed interstitial and airspace opacity, central and lower.Normal cardiac silhouette size. Adequate appearing endotracheal tube. Adequate appearing enteric tube partially obscured. Limitation: Leads/hardware/artifact. No pneumothorax. Stable bony thorax. Moderate scoliotic curvature. IMPRESSION: Moderate pulmonary edema pattern. Differential diagnosis includes pulmonary edema, multifocal pneumonia, and chronic interstitial lung disease.
[2019-09-05 07:25] LABS: ALBUMIN 2.7 g/dL (3.5-5.0); ALKALINE PHOSPHATASE 103 U/L (38-126); ANION GAP 6 (5-19); ASPARTATE AMINO TRANSFERASE 49 U/L (14-36); BILIRUBIN,DIRECT 0.3 mg/dL (0.0-0.4); BILIRUBIN,TOTAL 0.3 mg/dL (0.2-1.3); BLOOD UREA NITROGEN 5 mg/dL (7-20); CALCIUM 8.2 mg/dL (8.4-10.2); CARBON DIOXIDE 30 mmol/L (22-30); CHLORIDE 99 mmol/L (98-107); GLUCOSE 141 mg/dL (75-110); PHOSPHORUS 4.4 mg/dL (2.5-4.5); POTASSIUM 4.3 mmol/L (3.6-5.0); TOTAL PROTEIN 5.7 g/dL (6.3-8.2)
--- NOTE | 2019-09-05 07:52 | CRITICAL CARE ADMISSION REPORT ---
HPI Date:: 09/05/19 Time:: 06:58 Reason for ICU Reason:: Acute respiratory failure, bronchospasm HPI: Mrs. 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 She was admitted to the ICU today after section was performed under general anesthesia as she was unable to have epidural due to spinal shunt. Per Dr. Rodriges, pt was 32 weeks gestation in labor and was taken to the OR for . Surgery was uncomplicated and a tubal ligation was performed. In recovery, pt was noted to have bronchospasms and given breathing treatments. She was extubated and then reintubated for respiratory distress. Decision was made to admit her to ICU for continued respiratory care and monitoring. History obtained from:: Surgeon, nurse, prior H&P - Diagnosis/Plan (1) Acute respiratory failure Is this a current diagnosis for this admission?: Yes (2) Acute bronchospasm Is this a current diagnosis for this admission?: Yes (3) COPD (chronic obstructive pulmonary disease) Is this a current diagnosis for this admission?: Yes (4) Scoliosis Is this a current diagnosis for this admission?: Yes (5) Lester's disease Is this a current diagnosis for this admission?: Yes (6) Restrictive lung disease due to kyphoscoliosis Is this a current diagnosis for this admission?: Yes - . Plan Summary: Plan: Respiratory: * Acute on chronic bronchospasitic disease - continue frequent nebulizer treatments, additional labs pending, can consider mag or ketamine if needed CV: * Continue on wheel press clerk - monitor hemodynamics closely in period Neuro: * Treat pain PRN - avoid over sedation * Hx of shunt in spine that will require follow up after stable and transferred from ICU * Continue lexapro and gabapentin when able Renal: * Hx of congenital renal disease - monitor I&O closely, trend renal indices and replace lytes PRN GI: * NPO at this time /reproductive: * Frequent dosumentation of lokia and fundus checks * pt wishes to breast feed - please obtain breast pump Heme/onc: * heparin sub Q orderd to start - please assess bleeding * SCDs ordered * repeat CBC pending Endo: * Hx of gestational DM - Q2hr accuchecks to monitor until stable * hx of Hoshimoto's thyroiditis - restart synthroid ID: * Intraoperative ppx abx given - no acute concerns at this time - will monitor Past Medical History Past Medical History: as per HPI Past Surgical History Past Surgical History: Reports: Section - X2, Orthopedic Surgery - back,L foot RECON, L hand RECONS, SHUNT- SPINAL CORD Social/Family History - Social History Smoking Status: Never Smoker - Medication/Allergies Home Medications: Escitalopram Oxalate [Lexapro] 5 mg PO DAILY 09/05/19 Gabapentin [Neurontin] 400 mg PO TID 09/05/19 Levothyroxine Sodium [Synthroid 0.05 mg Tablet] 0.05 mg PO DAILY 09/05/19 Vits96/Iron Fum/Folic [ Tablet] 1 tab PO 09/05/19 Allergies/Adverse Reactions: No Known Allergies Allergy (Verified 07/20/19 17:57) Review of Systems ROS unobtainable: Due to endotracheal tube Physical Exam Vital Signs: Temp Pulse Resp BP Pulse Ox 100 09/05/19 06:00 Intake & Output 09/03/19 09/04/19 09/05/19 06:59 06:59 06:59 Weight 50.3 kg Weight/Height Weight 50.3 kg Height 4 ft 11 in General appearance: PRESENT: no acute distress Head exam: PRESENT: atraumatic, normocephalic Eye exam: PRESENT: conjunctiva pink, PERRLA. ABSENT: nystagmus, scleral icterus Ear exam: PRESENT: normal external ear exam Mouth exam: PRESENT: laceration - to right lower lip, moist Neck exam: ABSENT: JVD, tracheal deviation Respiratory exam: PRESENT: decreased breath sounds, rhonchi - throughout. ABSENT: accessory muscle use Cardiovascular exam: PRESENT: RRR, +S1, +S2 Pulses: PRESENT: normal radial pulses Vascular exam: PRESENT: pallor GI/Abdominal exam: PRESENT: firm, hypoactive bowel sounds, rigid - lower abdomen - no tetany noted to fundus Extremities exam: PRESENT: clubbing Musculoskeletal exam: PRESENT: other - moderate scoliosis Neurological exam: PRESENT: other - sedated Skin exam: PRESENT: dry, pallor Tubes/Lines: PRESENT: Endotracheal Tube Laboratory/Radiographs Laboratory Results: 09/05/19 09/05/19 09/05/19 02:29 03:57 03:57 WBC 6.8 RBC 3.42 L Hgb 10.5 L Hct 29.9 L MCV 87 MCH 30.8 MCHC 35.3 RDW 14.5 H Plt Count 233 Seg Neutrophils % 64.4 Urine Color YELLOW Urine Appearance CLEAR Urine pH 6.0 Ur Specific [place] 1.013 Urine Protein NEGATIVE Urine Glucose (UA) NEGATIVE Urine Ketones TRACE H Urine Blood LARGE H Urine Nitrite NEGATIVE Ur Leukocyte Esterase SMALL H Urine WBC (Auto) 51 Urine RBC (Auto) >182 Blood Type A POSITIVE Antibody Screen NEGATIVE Critical Time Critical Time (minutes): 45 -: The care of a critically ill patient is dynamic. This note represents a static moment in the admission process. Orders and treatments may be given simultaneously and urgently, and time is not used equipment sales representative of the treatment process. This patient requires Critical Care secondary to life threatening organ or limb dysfunction. Without Critical Care services, the patient is at risk for increased mortality and morbidity.
[2019-09-05] MEDS: IPRATROPIUM/ALBUTEROL 0.5-2.5 MG/3 ML AMPUL NEB SCH ×5 (07:59→23:50)
[2019-09-05] MEDS ORDERED: PRENATAL VITAMIN W DHA CAPSULE PO SCH (10:00)
[2019-09-05] MEDS ORDERED: SUCCINYLCHOLINE CHLORIDE INJ 200 MG/10 ML VIAL ONE (10:34)
[2019-09-05] MEDS: DOCUSATE SODIUM 100 MG CAPSULE PO SCH ×2 (11:40→18:19)
[2019-09-05] MEDS: IBUPROFEN 800 MG TABLET PO SCH ×2 (11:41→18:19)
[2019-09-05] MEDS ORDERED: HEPARIN SOD (PORCINE) 5,000 UNIT/ML 1 ML VIAL SUBCUT SCH (14:00)
[2019-09-05] MEDS: OXYCODONE-ACETAMINOPHEN 5-325 MG TABLET PO PRN ×2 (14:16→20:05)
[2019-09-06] MEDS: IBUPROFEN 800 MG TABLET PO SCH ×4 (00:03→17:04)
[2019-09-06] MEDS: IPRATROPIUM/ALBUTEROL 0.5-2.5 MG/3 ML AMPUL NEB SCH ×6 (03:58→23:50)
[2019-09-06 07:02] LABS: HEMATOCRIT 28.5 % (36.0-47.0); HEMOGLOBIN 9.8 g/dL (12.0-15.5); MEAN CORPUSCULAR HEMOGLOBIN 30.5 pg (27.0-33.4); MEAN CORPUSCULAR HGB CONC 34.4 g/dL (32.0-36.0); MEAN CORPUSCULAR VOLUME 89 fl (80-97); PLATELET COUNT 219 10^3/uL (150-450); RED BLOOD COUNT 3.21 10^6/uL (3.72-5.28); RED CELL DISTRIBUTION WIDTH 14.8 % (11.5-14.0)
[2019-09-06] MEDS: OXYCODONE-ACETAMINOPHEN 5-325 MG TABLET PO PRN ×2 (08:27→17:05)
--- NOTE | 2019-09-06 09:17 | PDOC PROGRESS REPORT ---
Subjective-OB Progress Note for:: 09/06/19 Subjective: Sitting up in chair eating breakfast, talking, passing gas, no c/o, hsb at BS, plans to breastfeed, baby in NICU and doing well, walking and doing well Physical Exam (OB) Vital Signs: Temp Pulse Resp BP Pulse Ox 98.0 F 88 18 119/73 95 09/06/19 08:28 09/06/19 08:28 09/06/19 08:28 09/06/19 08:28 09/06/19 08:28 Intake & Output 09/05/19 09/06/19 09/07/19 06:59 06:59 06:59 Intake Total 1 1437 Output Total 1411 Balance 1 26 Weight 52.7 kg - PIH/Pre-Eclampsia DTR's: 1 + Clonus: Negative Headache: Absent Epigastric Pain: No Visual Changes: No - Dressing Removed: No - opsite - scant sanguinous drainage noted Incision: Dressing Closure Type: Steri-Strips - Bilateral Tubal Ligation Dressing Removed: No Site: Dressing - Lochia Lochia Amount: Scant < 10 ml Lochia Color: Rubra/Red - Abdomen Description: Tender, Soft, Round Hernia Present: No Fundal Description: Firm, Midline Fundal Height: u/u - u/2 Objective-Diagnostic Laboratory: 09/06/19 06:48 09/05/19 06:52 09/06/19 06:48 WBC 8.0 RBC 3.21 L Hgb 9.8 L Hct 28.5 L MCV 89 MCH 30.5 MCHC 34.4 RDW 14.8 H Plt Count 219 Assessment and Plan(PN) - Assessment and Plan (1) delivery Is this a current diagnosis for this admission?: Yes (2) Status post tubal ligation at time of delivery, current hosp Is this a current diagnosis for this admission?: Yes (4) Acute respiratory failure Qualifiers: Respiratory failure complication: unspecified whether with hypoxia or hypercapnia Qualified Code(s): J96.00 - Acute respiratory failure, unspecified whether with hypoxia or hypercapnia Is this a current diagnosis for this admission?: Yes (5) Acute bronchospasm Is this a current diagnosis for this admission?: Yes (6) COPD (chronic obstructive pulmonary disease) Qualifiers: Emphysema type: unspecified Is this a current diagnosis for this admission?: Yes (7) Scoliosis Qualifiers: Spinal region: unspecified Is this a current diagnosis for this admission?: Yes (8) Lester's disease Is this a current diagnosis for this admission?: Yes (9) Restrictive lung disease due to kyphoscoliosis Is this a current diagnosis for this admission?: Yes - Time Spent with Patient Time with patient: Less than 15 minutes Medications reviewed and adjusted accordingly: Yes - Disposition Anticipated Discharge: Home Within: within 48 hours
[2019-09-06] MEDS: DOCUSATE SODIUM 100 MG CAPSULE PO SCH ×2 (09:23→17:04)
[2019-09-07] MEDS: IBUPROFEN 800 MG TABLET PO SCH ×5 (00:40→23:13)
[2019-09-07] MEDS: IPRATROPIUM/ALBUTEROL 0.5-2.5 MG/3 ML AMPUL NEB SCH ×2 (03:24→09:25)
[2019-09-07] MEDS ORDERED: EPINEPHRINE INJ 1 MG/10 ML DISP.SYRIN ONE (07:30)
[2019-09-07] MEDS: OXYCODONE-ACETAMINOPHEN 5-325 MG TABLET PO PRN ×3 (07:52→21:55)
[2019-09-07] MEDS: DOCUSATE SODIUM 100 MG CAPSULE PO SCH ×2 (09:19→17:56)
[2019-09-07] MEDS ORDERED: IPRATROPIUM/ALBUTEROL 0.5-2.5 MG/3 ML AMPUL NEB PRN (10:53)
--- NOTE | 2019-09-07 11:22 | PDOC PROGRESS REPORT ---
Subjective-OB Progress Note for:: 09/07/19 Subjective: Pt doing well, was in NICU visiting baby. She reports light bleeding, reg diet with +flatus. Ambulatory. Not ready to go home today. Physical Exam (OB) Vital Signs: Temp Pulse Resp BP Pulse Ox 97.9 F 81 16 124/74 95 09/07/19 07:46 09/07/19 09:25 09/07/19 09:25 09/07/19 07:46 09/07/19 09:25 Intake & Output 09/06/19 09/07/19 09/08/19 06:59 06:59 06:59 Intake Total 1437 900 Output Total 1411 Balance 26 900 - Dressing Removed: No - opsite Incision: Well Approximated Closure Type: Steri-Strips - Lochia Lochia Amount: Scant < 10 ml Lochia Color: Rubra/Red - Abdomen Description: Soft Hernia Present: No Fundal Description: Firm, Midline Fundal Height: u/u - u/2 Objective-Diagnostic Laboratory: 09/06/19 06:48 09/05/19 06:52 Assessment and Plan(PN) - Assessment and Plan (1) Lester's disease Is this a current diagnosis for this admission?: Yes (2) delivery Is this a current diagnosis for this admission?: Yes (3) Restrictive lung disease due to kyphoscoliosis Is this a current diagnosis for this admission?: Yes (4) Scoliosis Qualifiers: Idiopathic scoliosis type: infantile Spinal region: unspecified Is this a current diagnosis for this admission?: Yes (5) Status post repeat low transverse section Is this a current diagnosis for this admission?: Yes (6) Active labor Qualifiers: Fetus number: single or unspecified fetus Qualified Code(s): O60.10X0 - labor with delivery, unspecified trimester, not applicable or unspecified Is this a current diagnosis for this admission?: Yes (7) Status post tubal ligation at time of delivery, current hosp Is this a current diagnosis for this admission?: Yes - Time Spent with Patient Time with patient: Less than 15 minutes Medications reviewed and adjusted accordingly: Yes - Disposition Anticipated Discharge: Home Within: within 24 hours
[2019-09-07] MEDS: GABAPENTIN 400 MG CAPSULE PO SCH ×2 (14:00→23:10)
[2019-09-07] MEDS: GUAIFENESIN 600 MG TABLET.SA PO SCH (21:54)
[2019-09-07] MEDS ORDERED: ESCITALOPRAM OXALATE 10 MG TABLET PO SCH (22:00)
[2019-09-08] MEDS: OXYCODONE-ACETAMINOPHEN 5-325 MG TABLET PO PRN ×3 (04:01→15:41)
[2019-09-08] MEDS: IBUPROFEN 800 MG TABLET PO SCH ×2 (05:10→12:29)
[2019-09-08] MEDS: GABAPENTIN 400 MG CAPSULE PO SCH ×2 (05:10→15:40)
[2019-09-08] MEDS ORDERED: LEVOTHYROXINE SODIUM 0.05 MG TABLET PO SCH (06:00)
[2019-09-08] MEDS: DOCUSATE SODIUM 100 MG CAPSULE PO SCH (10:15)
[2019-09-08] MEDS: GUAIFENESIN 600 MG TABLET.SA PO SCH (10:15)
[2019-09-08 11:27] VITALS: BP 114/80
--- NOTE | 2019-09-08 13:50 | PDOC DISCHARGE SUMMARY ---
Impression - Admit/DC Date/PCP Admission Date/Primary Care Provider: 09/05/19 03:06 Discharge Date: 09/08/19 - Discharge Diagnosis (1) Active labor Is this a current diagnosis for this admission?: Yes (2) Acute blood loss anemia Is this a current diagnosis for this admission?: Yes (3) delivery Is this a current diagnosis for this admission?: Yes (4) Status post repeat low transverse section Is this a current diagnosis for this admission?: Yes (5) Status post tubal ligation at time of delivery, current hosp Is this a current diagnosis for this admission?: Yes (6) COPD (chronic obstructive pulmonary disease) Is this a current diagnosis for this admission?: Yes (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 (8) Restrictive lung disease due to kyphoscoliosis Is this a current diagnosis for this admission?: Yes (9) Scoliosis Is this a current diagnosis for this admission?: Yes - Additional Information Resuscitation Status: Full Code Discharge Diet: As Tolerated, Regular Discharge Activity: Activity As Tolerated, Balance Activity w/Rest, No Driving, No Lifting Over 10 Pounds, Pelvic Rest, No tub bath, Walk Frequently Prescriptions: Oxycodone HCl/Acetaminophen [Percocet 5-325 mg Tablet] 1 tab PO Q4HP PRN #20 tablet PRN Reason: For Pain Scale 3-5 Ibuprofen [Motrin 800 mg Tablet] 800 mg PO Q6HP PRN #20 tablet PRN Reason: For Pain Scale 1-3 Docusate Sodium [Colace 100 mg Capsule] 100 mg PO BID #60 capsule Home Medications: Escitalopram Oxalate [Lexapro 10 mg Tablet] 20 mg PO QHS 09/05/19 Gabapentin [Neurontin] 400 mg PO Q8 09/05/19 Levothyroxine Sodium [Synthroid 0.05 mg Tablet] 0.05 mg PO Q6AM 09/05/19 Vit/Dha [ Multi + Dha Capsule] 1 cap PO DAILY 09/05/19 Docusate Sodium [Colace 100 mg Capsule] 100 mg PO BID #60 capsule 09/08/19 Ibuprofen [Motrin 800 mg Tablet] 800 mg PO Q6HP PRN #20 tablet 09/08/19 Oxycodone HCl/Acetaminophen [Percocet 5-325 mg Tablet] 1 tab PO Q4HP PRN #20 tablet 09/08/19 Results Laboratory Results: WBC 8.0 10^3/uL (4.0-10.5) 09/06/19 06:48 RBC 3.21 10^6/uL (3.72-5.28) L 09/06/19 06:48 Hgb 9.8 g/dL (12.0-15.5) L 09/06/19 06:48 Hct 28.5 % (36.0-47.0) L 09/06/19 06:48 MCV 89 fl (80-97) 09/06/19 06:48 MCH 30.5 pg (27.0-33.4) 09/06/19 06:48 MCHC 34.4 g/dL (32.0-36.0) 09/06/19 06:48 RDW 14.8 % (11.5-14.0) H 09/06/19 06:48 Plt Count 219 10^3/uL (150-450) 09/06/19 06:48 Lymph % (Auto) 13.1 % (13-45) 09/05/19 06:52 Howell % (Auto) 2.1 % (3-13) L 09/05/19 06:52 Eos % (Auto) 0.3 % (0-6) 09/05/19 06:52 Baso % (Auto) 0.3 % (0-2) 09/05/19 06:52 Absolute Neuts (auto) 12.6 10^3/uL (1.7-8.2) H 09/05/19 06:52 Absolute Lymphs (auto) 2.0 10^3/uL (0.5-4.7) 09/05/19 06:52 Absolute Monos (auto) 0.3 10^3/uL (0.1-1.4) 09/05/19 06:52 Absolute Eos (auto) 0.1 10^3/uL (0.0-0.6) 09/05/19 06:52 Absolute Basos (auto) 0.0 10^3/uL (0.0-0.2) 09/05/19 06:52 Seg Neutrophils % 84.2 % (42-78) H 09/05/19 06:52 PT 12.8 SEC (11.4-15.4) 09/05/19 06:52 INR 0.96 09/05/19 06:52 APTT 24.7 SEC (23.5-35.8) 09/05/19 06:52 Sodium 134.7 mmol/L (137-145) L 09/05/19 06:52 Potassium 4.3 mmol/L (3.6-5.0) 09/05/19 06:52 Chloride 99 mmol/L (98-107) 09/05/19 06:52 Carbon Dioxide 30 mmol/L (22-30) 09/05/19 06:52 Anion Gap 6 (5-19) 09/05/19 06:52 BUN 5 mg/dL (7-20) L 09/05/19 06:52 Creatinine 0.31 mg/dL (0.52-1.25) L 09/05/19 06:52 Est GFR ( Amer) > 60 (>60) 09/05/19 06:52 Est GFR (MDRD) Non-Af > 60 (>60) 09/05/19 06:52 Glucose 141 mg/dL (75-110) H 09/05/19 06:52 POC Glucose 170 mg/dL (70-110) H 09/05/19 08:41 Calcium 8.2 mg/dL (8.4-10.2) L 09/05/19 06:52 Phosphorus 4.4 mg/dL (2.5-4.5) 09/05/19 06:52 Magnesium 1.5 mg/dL (1.6-2.3) L 09/05/19 06:52 Total Bilirubin 0.3 mg/dL (0.2-1.3) 09/05/19 06:52 Direct Bilirubin 0.3 mg/dL (0.0-0.4) 09/05/19 06:52 Neonat Total Bilirubin Not Reportable 09/05/19 06:52 Neonat Direct Bilirubin Not Reportable 09/05/19 06:52 Neonat Indirect Bili Not Reportable 09/05/19 06:52 AST 49 U/L (14-36) H 09/05/19 06:52 ALT 71 U/L (<35) H 09/05/19 06:52 Alkaline Phosphatase 103 U/L (38-126) 09/05/19 06:52 Total Protein 5.7 g/dL (6.3-8.2) L 09/05/19 06:52 Albumin 2.7 g/dL (3.5-5.0) L 09/05/19 06:52 Urine Color YELLOW 09/05/19 02:29 Urine Appearance CLEAR 09/05/19 02:29 Urine pH 6.0 (5.0-9.0) 09/05/19 02:29 Ur Specific Ratt[place] 1.013 09/05/19 02:29 Urine Protein NEGATIVE mg/dL (NEGATIVE) 09/05/19 02:29 Urine Glucose (UA) NEGATIVE mg/dL (NEGATIVE) 09/05/19 02:29 Urine Ketones TRACE mg/dL (NEGATIVE) H 09/05/19 02:29 Urine Blood LARGE (NEGATIVE) H 09/05/19 02:29 Urine Nitrite NEGATIVE (NEGATIVE) 09/05/19 02:29 Urine Bilirubin NEGATIVE (NEGATIVE) 09/05/19 02:29 Urine Urobilinogen NEGATIVE mg/dL (<2.0) 09/05/19 02:29 Ur Leukocyte Esterase SMALL (NEGATIVE) H 09/05/19 02:29 Urine WBC (Auto) 51 /HPF 09/05/19 02:29 Urine RBC (Auto) >182 /HPF 09/05/19 02:29 Urine Ascorbic Acid NEGATIVE (NEGATIVE) 09/05/19 02:29 Urine Opiates Screen NEGATIVE 09/05/19 02:29 Urine Methadone Screen NEGATIVE 09/05/19 02:29 Ur Barbiturates Screen NEGATIVE 09/05/19 02:29 Ur Phencyclidine Scrn NEGATIVE 09/05/19 02:29 Ur Amphetamines Screen NEGATIVE 09/05/19 02:29 U Benzodiazepines Scrn NEGATIVE 09/05/19 02:29 Urine Cocaine Screen NEGATIVE 09/05/19 02:29 U Marijuana (THC) Screen NEGATIVE 09/05/19 02:29 RPR NONREACTIVE (NONREACTIVE) 09/05/19 03:57 Blood Type A POSITIVE 09/05/19 03:57 Antibody Screen NEGATIVE 09/05/19 03:57 Impressions: Chest X-Ray 09/05/19 05:41 IMPRESSION: Moderate pulmonary edema pattern. Differential diagnosis includes pulmonary edema, multifocal pneumonia, and chronic interstitial lung disease.
== END 2019-09-08 18:20 | disposition home or self-care (01) | DRG 783 ==
LOC: LC 02:22 → LR 03:06 → ICU 06:01 → 2S 16:59
PROVIDERS: ADMIT Obstetrics & Gynecology; ATTEND Obstetrics & Gynecology
PROC: 10D00Z1 Extraction of Products of Conception, Low, Open Approach (ICD-10-PCS; principal; 2019-09-05)
PROC: 0UB50ZZ Excision of Right Fallopian Tube, Open Approach (ICD-10-PCS; 2019-09-05)
PROC: 0BH17EZ Insertion of Endotracheal Airway into Trachea, Via Natural or Artificial Opening (ICD-10-PCS; 2019-09-05)
PROC: 5A1935Z Respiratory Ventilation, Less than 24 Consecutive Hours (ICD-10-PCS; 2019-09-05)
DX: O60.14X0 Preterm labor third trimester with preterm delivery third trimester, not applicable or unspecified (principal); J96.00 Acute respiratory failure, unspecified whether with hypoxia or hypercapnia; Q60.0 Renal agenesis, unilateral; Q67.5 Congenital deformity of spine; D62 Acute posthemorrhagic anemia; J98.01 Acute bronchospasm; O99.284 Endocrine, nutritional and metabolic diseases complicating childbirth; Z3A.32 32 weeks gestation of pregnancy; Z37.0 Single live birth; O99.89 Other specified diseases and conditions complicating pregnancy, childbirth and the puerperium; N73.6 Female pelvic peritoneal adhesions (postinfective); E06.3 Autoimmune thyroiditis; F41.9 Anxiety disorder, unspecified; Z96.89 Presence of other specified functional implants; O99.52 Diseases of the respiratory system complicating childbirth; J44.9 Chronic obstructive pulmonary disease, unspecified; J98.4 Other disorders of lung; O24.429 Gestational diabetes mellitus in childbirth, unspecified control; O99.02 Anemia complicating childbirth; O34.211 Maternal care for low transverse scar from previous cesarean delivery; Z90.5 Acquired absence of kidney; Z30.2 Encounter for sterilization; Z98.890 Other specified postprocedural states; Z90.721 Acquired absence of ovaries, unilateral; Z90.79 Acquired absence of other genital organ(s); Z79.890 Hormone replacement therapy; Z79.899 Other long term (current) drug therapy
CPT/HCPCS: 1961; 36415; 71045; 80053; 80307; 81001; 82962; 83735; 84100; 85025; 85027; 85610; 85730; 86592; 86850; 86900; 86901; 88302; 94002; 94760; 94799; 99291; J0131; J0171; J0330; J0690; J1100; J1644; J1885; J2210; J2370; J2405; J2590; J2704; J3010; J3490; J7120; J7620